=== PATIENT | male | born 1940 | race Caucasian/White ===

== ENCOUNTER 2018-08-28 06:05 | Emergency (ER) | payer MEDICAID ==
[~2018-08-28] VITALS: Ht 167.6 cm; Wt 73.0 kg
[~2018-08-28 06:05] MED LIST: ACET-2178 PO; AMLO2.5T45 PO; GABA-531 PO; PIOG30TA10 PO; TAMS0.4C31 PO
[2018-08-28] MEDS ORDERED: KETOROLAC 30MG/ML VIAL IM ONE (12:15)
[2018-08-28] MEDS ORDERED: HYDROCODONE/ACETAMINOPHEN 5/325MG TABLET PO ONE (12:15)
[2018-08-28] MEDS ORDERED: METHOCARBAMOL 500MG TABLET PO ONE (12:15)
[2018-08-28 15:12] VITALS: BP 123/45
== END 2018-08-28 15:15 | disposition home or self-care (01) ==
LOC: ER 06:05
DX: M48.061 Spinal stenosis, lumbar region without neurogenic claudication (principal); M54.42 Lumbago with sciatica, left side; J45.909 Unspecified asthma, uncomplicated; E11.9 Type 2 diabetes mellitus without complications; Z79.899 Other long term (current) drug therapy
CPT/HCPCS: 72131; 96372; 99284; J1885

== ENCOUNTER 2019-01-29 10:34 | Inpatient (IN) | payer MEDICAID ==
[2019-01-29] VITALS (28 sets, daily range): BP systolic 94–152; BP diastolic 45–80
[~2019-01-29] VITALS: Ht 165.1 cm; Wt 77.2 kg
[2019-01-29] MEDS ORDERED: SODIUM CHLORIDE 0.9% 1,000 ML IV ONE (11:28)
[2019-01-29 11:56] LABS: CHLORIDE 105 mEq/L (98-107)
[2019-01-29 11:59] LABS: BASOPHILS % 0.7 % (0.0-2.0); EOSINOPHILS % 0.6 % (0.0-5.0); HEMATOCRIT. 37.9 % (42.0-52.0); HEMOGLOBIN. 12.7 g/dL (14.0-18.0); LYMPHOCYTES % 19.2 % (20.0-50.0); MEAN CORPUSCULAR HEMOGLOBIN 30.6 pg (28.0-32.0); MEAN CORPUSCULAR VOLUME 91.1 fL (80.0-94.0); MEAN PLATELET VOLUME 10.1 fl (7.4-10.4); MONOCYTES % 8.8 % (2.0-8.0); NEUTROPHILS % 70.7 % (40.0-76.0); PLATELET 223 x1000/uL (130-400); RED BLOOD CELL COUNT 4.16 mill/uL (4.7-6.1); RED CELL DISTRIBUTION WIDTH 13.5 % (11.6-14.6)
[2019-01-29 12:03] LABS: PARTIAL THROMBOPLASTIN TIME 26.8 sec (23.4-31.0); PROTHROMBIN TIME 10.2 sec (9.6-11.0)
[2019-01-29] MEDS ORDERED: LEVETIRACETAM 500MG PREMIX 100 ML IV ONE (14:00)
[2019-01-29] MEDS ORDERED: DEXAMETHASONE 10 MG/ML VIAL IV ONE (14:00)
[2019-01-29] MEDS ORDERED: IOHEXOL-350 100 ML BOTTLE ONE (14:22)
[2019-01-29] MEDS ORDERED: LABETALOL 5MG/ML SYR 20 MG/4 ML SYRINGE IV ONE (15:15)
[2019-01-29] MEDS: DEXT 5%/LACTATED RINGERS 1,000 ML IV SCH (16:30)
[2019-01-29] MEDS ORDERED: IPRATROPIUM/ALBUTEROL 0.5-3(2.5)MG/3ML NEB HHN PRN (16:30)
[2019-01-29] MEDS ORDERED: NICARDIPINE 40MG/200ML PREMIX 200 ML IV SCH (16:30)
[2019-01-29] MEDS: NICARDIPINE 100 MG in SODIUM CHLORIDE 0.9% 60 ML IV PRN (16:31)
[2019-01-29] MEDS ORDERED: MORPHINE SULFATE 2 MG/ML CPJ (NOT FOR IM USE) IV PRN (18:00)
[2019-01-29] MEDS: DEXAMETHASONE 4MG/ML 1ML VIAL IV SCH ×2 (18:30→23:11)
[2019-01-29] MEDS ORDERED: ATOR20TA MT (19:24)
[2019-01-29] MEDS ORDERED: AMLO5TAB4 MT (19:24)
[2019-01-29] MEDS ORDERED: GABA300C MT (19:25)
[2019-01-29] MEDS ORDERED: AMA2 MT (19:26)
[2019-01-29] MEDS ORDERED: TAMS-11 MT (19:26)
[2019-01-29] MEDS ORDERED: ASPI-1393 MT (19:27)
[2019-01-29] MEDS ORDERED: PIOG45TA5 MT (19:28)
[2019-01-29] MEDS ORDERED: albuterol sulfate (19:31)
[2019-01-29] MEDS ORDERED: DIPHENHYDRAMINE 50MG/ML VIAL IV PRN (19:45)
[2019-01-29] MEDS ORDERED: ONDANSETRON HCL 4MG/2ML INJ IV PRN (19:45)
[2019-01-29] MEDS: LEVETIRACETAM 500 MG in SODIUM CHLORIDE 0.9% 100 ML IV SCH (21:53)
[2019-01-30] VITALS (93 sets, daily range): BP systolic 99–178; BP diastolic 28–79
[2019-01-30 05:21] LABS: HEMATOCRIT. 36.2 % (42.0-52.0); MEAN CORPUSCULAR HEMOGLOBIN 30.4 pg (28.0-32.0); MEAN CORPUSCULAR VOLUME 91.7 fL (80.0-94.0); MEAN PLATELET VOLUME 10.1 fl (7.4-10.4); PLATELET 231 x1000/uL (130-400); RED BLOOD CELL COUNT 3.95 mill/uL (4.7-6.1); RED CELL DISTRIBUTION WIDTH 13.8 % (11.6-14.6)
[2019-01-30] MEDS: DEXAMETHASONE 4MG/ML 1ML VIAL IV SCH ×3 (05:42→17:09)
[2019-01-30] MEDS: NICARDIPINE 100 MG in SODIUM CHLORIDE 0.9% 60 ML IV PRN (06:29)
[2019-01-30] MEDS ORDERED: NORMAL SALINE 0.9% 10 ML SYR ONE (07:24)
[2019-01-30] MEDS ORDERED: BACITRACIN 15GM TUBE TOP ONE (07:24)
[2019-01-30] MEDS ORDERED: LIDOCAINE HCL/EPINEPHRINE 1%-EPI 1:100,000 20 ML VIAL ONE (07:25)
[2019-01-30] MEDS ORDERED: THROMBIN (BOVINE) 5000 UNITS/VIAL TOP ONE (07:25)
[2019-01-30] MEDS ORDERED: BACITRACIN 50,000 UNITS/VIAL ONE (07:25)
[2019-01-30] MEDS ORDERED: LACTATED RINGERS 3,000 ML IV ONE (07:25)
[2019-01-30] MEDS ORDERED: DEXTROSE 50% WATER 50ML SYRINGE IV PRN (07:30)
[2019-01-30] MEDS ORDERED: INSULIN LISPRO 100 UNITS/ML SUBCUT SCH (07:30)
[2019-01-30] MEDS: LEVETIRACETAM 500 MG in SODIUM CHLORIDE 0.9% 100 ML IV SCH ×2 (08:39→20:20)
[2019-01-30] MEDS ORDERED: FENTANYL CITRATE/PF 50MCG/ML 2ML VIAL ONE (09:15)
[2019-01-30] MEDS ORDERED: GLYCOPYRROLATE 0.2 MG/ML 2ML VIAL ONE (09:15)
[2019-01-30] MEDS ORDERED: ROCURONIUM BROMIDE 10MG/ML VIAL 5ML IV ONE (09:15)
[2019-01-30] MEDS ORDERED: PROPOFOL 200MG/20ML VIAL IV ONE (09:15)
[2019-01-30] MEDS ORDERED: MIDAZOLAM HCL 2 MG/2 ML VIAL ONE (09:15)
[2019-01-30] MEDS ORDERED: NEOSTIGMINE METHYLSULFATE 1MG/ML 10 ML VIAL ONE (09:15)
[2019-01-30] MEDS ORDERED: DEXAMETHASONE 4MG/ML 1ML VIAL ONE (09:35)
[2019-01-30] MEDS ORDERED: ONDANSETRON HCL 4MG/2ML INJ ONE (09:35)
[2019-01-30] MEDS ORDERED: CEFAZOLIN SODIUM 1000MG/VIAL ONE (09:36)
[2019-01-30] MEDS ORDERED: SODIUM CHLORIDE 0.9% 10ML VIAL ONE (09:36)
[2019-01-30] MEDS ORDERED: PHENYTOIN SODIUM 250MG/5ML VIAL IV SCH (09:45)
[2019-01-30 09:59] LABS: PLATELET ESTIMATE NORMAL
[2019-01-30] MEDS ORDERED: LABETALOL 5MG/ML SYR 20 MG/4 ML SYRINGE IV PRN (10:00)
[2019-01-30] MEDS ORDERED: HYDROMORPHONE HCL/PF 2MG/ML CPJ IV PRN (10:00)
[2019-01-30] MEDS ORDERED: MEPERIDINE HCL/PF 25MG/ML CPJ IV PRN (10:00)
[2019-01-30] MEDS ORDERED: ONDANSETRON HCL 4MG/2ML INJ IV PRN (10:00)
[2019-01-30] MEDS ORDERED: MORPHINE SULFATE 2 MG/ML CPJ (NOT FOR IM USE) IV PRN (10:00)
[2019-01-30] MEDS: MORPHINE SULFATE 4 MG/ML CPJ (NOT FOR IM USE) IV PRN (10:50)
[2019-01-30] MEDS: DEXT 5%/LACTATED RINGERS 1,000 ML IV SCH (11:04)
[2019-01-30] MEDS: PHENYTOIN SODIUM 100MG/2ML VIAL IV SCH ×2 (11:33→17:10)
[2019-01-30] MEDS: BLOOD SUGAR DIAGNOSTIC STRIP TEST SCH ×2 (11:50→17:05)
[2019-01-30 11:55] LABS: BG BASE EXCESS -8.8 mmol/L (-2.0-2.0); BG CARBOXYHEMOGLOBIN 0.1 % (0.5-1.5); BG DEOXYHEMOGLOBIN 0.5 % (0.0-5.0); BG FRACTION INSPIRED OXYGEN 100; BG HCO3 ACT 16.2 mmol/L (22.0-26.0); BG METHEMOGLOBIN 0.4 % (0.0-1.5); BG OXYGEN SATURATION 99.5 % (92.0-98.5); BG PCO2 32.6 mmHg (35.0-45.0); BG PH 7.315 (7.350-7.450); BG PO2 405.6 mmHg (75.0-100.0); BG SAMPLE SITE RIGHT RADIAL; BG TIDAL VOLUME(mL) 500 mL; BG TOTAL HEMOGLOBIN 13.2 g/dL (12.0-18.0); BG VENT MODE VENT - A/C; BG VENT RATE 12 set
[2019-01-30] MEDS: INSULIN LISPRO 100 UNITS/ML SUBCUT SCH ×2 (11:55→17:10)
[2019-01-30] MEDS ORDERED: CEFAZOLIN SODIUM 1000MG/VIAL IV SCH (14:00)
[2019-01-30] MEDS: PANTOPRAZOLE SODIUM 40 MG/VIAL IV SCH (14:13)
[2019-01-30] MEDS: CEFAZOLIN 1000MG PREMIX 50 ML IV SCH ×2 (14:13→22:08)
[2019-01-30] MEDS: INSULIN GLARGINE UD 100 UNITS/ML SYR SUBCUT SCH (22:10)
[2019-01-31] VITALS (90 sets, daily range): BP systolic 99–144; BP diastolic 45–108
[2019-01-31] MEDS: DEXAMETHASONE 4MG/ML 1ML VIAL IV SCH ×5 (00:42→23:07)
[2019-01-31] MEDS: INSULIN LISPRO 100 UNITS/ML SUBCUT SCH ×5 (00:43→23:07)
[2019-01-31] MEDS: PHENYTOIN SODIUM 100MG/2ML VIAL IV SCH ×3 (02:39→17:55)
[2019-01-31] MEDS: MORPHINE SULFATE 4 MG/ML CPJ (NOT FOR IM USE) IV PRN ×2 (02:40→18:55)
[2019-01-31] MEDS: CEFAZOLIN 1000MG PREMIX 50 ML IV SCH ×3 (05:03→21:30)
[2019-01-31] MEDS: BLOOD SUGAR DIAGNOSTIC STRIP TEST SCH ×5 (05:05→23:08)
[2019-01-31 05:12] LABS: HEMATOCRIT. 38.6 % (42.0-52.0); HEMOGLOBIN. 12.7 g/dL (14.0-18.0); MEAN CORPUSCULAR HEMOGLOBIN 30.1 pg (28.0-32.0); MEAN CORPUSCULAR VOLUME 91.6 fL (80.0-94.0); MEAN PLATELET VOLUME 9.8 fl (7.4-10.4); PLATELET 218 x1000/uL (130-400); RED BLOOD CELL COUNT 4.22 mill/uL (4.7-6.1); RED CELL DISTRIBUTION WIDTH 14.1 % (11.6-14.6)
[2019-01-31 05:20] LABS: CHLORIDE 108 mEq/L (98-107)
[2019-01-31 05:29] LABS: LDL CHOLESTEROL 53 mg/dL (5-100)
[2019-01-31 05:31] LABS: HDL CHOLESTEROL 58 mg/dL (40-59)
[2019-01-31] MEDS: PANTOPRAZOLE SODIUM 40 MG/VIAL IV SCH (08:37)
[2019-01-31] MEDS: LEVETIRACETAM 500 MG in SODIUM CHLORIDE 0.9% 100 ML IV SCH ×2 (08:37→21:30)
[2019-01-31] MEDS: DEXT 5%/LACTATED RINGERS 1,000 ML IV SCH (08:38)
[2019-01-31] MEDS: INSULIN GLARGINE UD 100 UNITS/ML SYR SUBCUT SCH (09:15)
[2019-01-31 09:54] LABS: PLATELET ESTIMATE NORMAL
[2019-01-31] MEDS ORDERED: DOCUSATE SODIUM 250MG CAPSULE PO PRN (11:00)
[2019-01-31] MEDS: AMLODIPINE 2.5MG TABLET PO SCH (16:53)
[2019-01-31] MEDS: IPRATROPIUM/ALBUTEROL 0.5-3(2.5)MG/3ML NEB INH PRN (20:17)
[2019-01-31] MEDS: ATORVASTATIN CALCIUM 20MG TABLET PO SCH (21:30)
[2019-01-31] MEDS ORDERED: INSULIN GLARGINE UD 100 UNITS/ML SYR SUBCUT SCH (22:00)
[2019-02-01] VITALS (89 sets, daily range): BP systolic 96–155; BP diastolic 43–81
[2019-02-01] MEDS: PHENYTOIN SODIUM EXTENDED 100MG CAPSULE PO SCH ×4 (02:03→21:14)
[2019-02-01] MEDS: AMLODIPINE 2.5MG TABLET PO SCH (03:14)
[2019-02-01 05:01] LABS: HEMATOCRIT. 36.2 % (42.0-52.0); MEAN CORPUSCULAR HEMOGLOBIN 30.2 pg (28.0-32.0); MEAN CORPUSCULAR VOLUME 91.5 fL (80.0-94.0); MEAN PLATELET VOLUME 10.3 fl (7.4-10.4); PLATELET 209 x1000/uL (130-400); RED BLOOD CELL COUNT 3.96 mill/uL (4.7-6.1)
[2019-02-01 05:13] LABS: CHLORIDE 107 mEq/L (98-107)
[2019-02-01] MEDS: BLOOD SUGAR DIAGNOSTIC STRIP TEST SCH ×4 (05:39→23:15)
[2019-02-01] MEDS: DEXAMETHASONE 4MG/ML 1ML VIAL IV SCH ×4 (05:39→23:14)
[2019-02-01] MEDS: GLIMEPIRIDE 2MG TABLET PO SCH (05:39)
[2019-02-01] MEDS: DEXT 5%/LACTATED RINGERS 1,000 ML IV SCH (05:40)
[2019-02-01] MEDS: INSULIN LISPRO 100 UNITS/ML SUBCUT SCH ×4 (05:41→23:14)
[2019-02-01] MEDS: CEFAZOLIN 1000MG PREMIX 50 ML IV SCH ×2 (05:42→13:52)
[2019-02-01 05:57] LABS: CREATINE KINASE 61 IU/L (39-308)
[2019-02-01 06:01] LABS: CREATINE KINASE MB FRACTION < 1.0 ng/mL (0.5-3.6)
[2019-02-01 07:27] LABS: PLATELET ESTIMATE NORMAL
[2019-02-01] MEDS: PIOGLITAZONE 45MG TABLET PO SCH (08:57)
[2019-02-01] MEDS: LEVETIRACETAM 500 MG in SODIUM CHLORIDE 0.9% 100 ML IV SCH ×2 (08:57→21:14)
[2019-02-01] MEDS: PANTOPRAZOLE SODIUM 40 MG/VIAL IV SCH (08:57)
[2019-02-01] MEDS: IPRATROPIUM/ALBUTEROL 0.5-3(2.5)MG/3ML NEB INH PRN ×2 (09:20→20:19)
[2019-02-01] MEDS: NICARDIPINE 100 MG in SODIUM CHLORIDE 0.9% 60 ML IV PRN ×2 (10:11→19:23)
[2019-02-01] MEDS: BENZONATATE 100MG CAPSULE PO PRN (10:45)
[2019-02-01] MEDS: MORPHINE SULFATE 4 MG/ML CPJ (NOT FOR IM USE) IV PRN (12:25)
[2019-02-01] MEDS: LOSARTAN POTASSIUM 25 MG TABLET PO SCH ×2 (13:52→21:14)
[2019-02-01] MEDS: AMLODIPINE 5MG TABLET PO SCH (21:14)
[2019-02-01] MEDS: ATORVASTATIN CALCIUM 20MG TABLET PO SCH (21:14)
[2019-02-01] MEDS: INSULIN GLARGINE UD 100 UNITS/ML SYR SUBCUT SCH (21:16)
[2019-02-02] VITALS (94 sets, daily range): BP systolic 101–157; BP diastolic 38–107
[2019-02-02] MEDS: DEXT 5%/LACTATED RINGERS 1,000 ML IV SCH ×2 (04:30→21:02)
[2019-02-02] MEDS: MORPHINE SULFATE 4 MG/ML CPJ (NOT FOR IM USE) IV PRN (04:37)
[2019-02-02 05:05] LABS: HEMATOCRIT. 37.3 % (42.0-52.0); HEMOGLOBIN. 12.4 g/dL (14.0-18.0); MEAN CORPUSCULAR HEMOGLOBIN 30.1 pg (28.0-32.0); MEAN CORPUSCULAR VOLUME 90.6 fL (80.0-94.0); MEAN PLATELET VOLUME 10.1 fl (7.4-10.4); PLATELET 213 x1000/uL (130-400); RED BLOOD CELL COUNT 4.11 mill/uL (4.7-6.1)
[2019-02-02 05:19] LABS: CHLORIDE 105 mEq/L (98-107)
[2019-02-02] MEDS: GLIMEPIRIDE 2MG TABLET PO SCH (05:36)
[2019-02-02] MEDS: DEXAMETHASONE 4MG/ML 1ML VIAL IV SCH ×4 (05:36→23:40)
[2019-02-02] MEDS: PHENYTOIN SODIUM EXTENDED 100MG CAPSULE PO SCH ×3 (05:36→22:18)
[2019-02-02] MEDS: INSULIN LISPRO 100 UNITS/ML SUBCUT SCH ×4 (05:39→23:48)
[2019-02-02] MEDS: BLOOD SUGAR DIAGNOSTIC STRIP TEST SCH ×4 (05:39→23:44)
[2019-02-02] MEDS: FAMOTIDINE 20MG TABLET PO SCH (08:01)
[2019-02-02] MEDS: PIOGLITAZONE 45MG TABLET PO SCH (08:01)
[2019-02-02] MEDS: AMLODIPINE 5MG TABLET PO SCH ×2 (08:01→21:05)
[2019-02-02] MEDS: LOSARTAN POTASSIUM 25 MG TABLET PO SCH ×2 (08:01→21:03)
[2019-02-02] MEDS: LEVETIRACETAM 500 MG in SODIUM CHLORIDE 0.9% 100 ML IV SCH ×2 (08:02→21:03)
[2019-02-02 11:54] LABS: PLATELET ESTIMATE NORMAL
[2019-02-02] MEDS: BENZONATATE 100MG CAPSULE PO PRN (13:00)
[2019-02-02] MEDS: IPRATROPIUM/ALBUTEROL 0.5-3(2.5)MG/3ML NEB INH PRN (13:46)
[2019-02-02] MEDS: ATORVASTATIN CALCIUM 20MG TABLET PO SCH (21:03)
[2019-02-02] MEDS: INSULIN GLARGINE UD 100 UNITS/ML SYR SUBCUT SCH (22:18)
[2019-02-03] VITALS (78 sets, daily range): BP systolic 113–146; BP diastolic 37–91
[2019-02-03] MEDS: DEXAMETHASONE 4MG/ML 1ML VIAL IV SCH ×4 (06:25→23:41)
[2019-02-03] MEDS: BLOOD SUGAR DIAGNOSTIC STRIP TEST SCH ×4 (06:25→23:36)
[2019-02-03] MEDS: GLIMEPIRIDE 2MG TABLET PO SCH (06:26)
[2019-02-03] MEDS: PHENYTOIN SODIUM EXTENDED 100MG CAPSULE PO SCH ×3 (06:26→21:25)
[2019-02-03] MEDS: INSULIN LISPRO 100 UNITS/ML SUBCUT SCH ×4 (06:43→23:41)
[2019-02-03] MEDS: PIOGLITAZONE 45MG TABLET PO SCH (08:02)
[2019-02-03] MEDS: FAMOTIDINE 20MG TABLET PO SCH (08:02)
[2019-02-03] MEDS: AMLODIPINE 5MG TABLET PO SCH ×2 (08:03→21:25)
[2019-02-03] MEDS: LEVETIRACETAM 500 MG in SODIUM CHLORIDE 0.9% 100 ML IV SCH ×2 (08:03→21:25)
[2019-02-03] MEDS: LOSARTAN POTASSIUM 25 MG TABLET PO SCH ×2 (08:03→21:25)
[2019-02-03] MEDS: BENZONATATE 100MG CAPSULE PO PRN (10:18)
[2019-02-03] MEDS: IPRATROPIUM/ALBUTEROL 0.5-3(2.5)MG/3ML NEB INH PRN (10:21)
[2019-02-03] MEDS: PROMETHAZINE/DEXTROMETHORPHAN 6.25-15MG/5ML BOTTLE 120ML PO PRN ×2 (11:04→17:10)
[2019-02-03] MEDS: IPRATROPIUM/ALBUTEROL 0.5-3(2.5)MG/3ML NEB HHN SCH ×2 (14:18→20:31)
[2019-02-03] MEDS: BUDESONIDE 0.5MG/2ML NEB HHN SCH ×2 (14:18→20:31)
[2019-02-03] MEDS: BENZONATATE 100MG CAPSULE PO SCH (17:10)
[2019-02-03] MEDS: ATORVASTATIN CALCIUM 20MG TABLET PO SCH (21:25)
[2019-02-03] MEDS: INSULIN GLARGINE UD 100 UNITS/ML SYR SUBCUT SCH (21:26)
[2019-02-04] VITALS (12 sets, daily range): BP systolic 113–147; BP diastolic 48–73
[2019-02-04] MEDS: IPRATROPIUM/ALBUTEROL 0.5-3(2.5)MG/3ML NEB HHN SCH (00:58)
[2019-02-04] MEDS: BENZONATATE 100MG CAPSULE PO SCH ×3 (05:39→21:18)
[2019-02-04] MEDS: PHENYTOIN SODIUM EXTENDED 100MG CAPSULE PO SCH ×3 (05:39→21:07)
[2019-02-04] MEDS: DEXAMETHASONE 4MG/ML 1ML VIAL IV SCH ×4 (05:39→23:26)
[2019-02-04] MEDS: BLOOD SUGAR DIAGNOSTIC STRIP TEST SCH ×4 (05:47→21:06)
[2019-02-04] MEDS: INSULIN LISPRO 100 UNITS/ML SUBCUT SCH ×4 (05:54→21:31)
[2019-02-04] MEDS: GLIMEPIRIDE 2MG TABLET PO SCH (06:44)
[2019-02-04 07:52] LABS: HEMOGLOBIN. 11.5 g/dL (14.0-18.0); MEAN CORPUSCULAR HEMOGLOBIN 29.9 pg (28.0-32.0); MEAN CORPUSCULAR VOLUME 90.6 fL (80.0-94.0); MEAN PLATELET VOLUME 9.8 fl (7.4-10.4); PLATELET 183 x1000/uL (130-400); RED BLOOD CELL COUNT 3.87 mill/uL (4.7-6.1); RED CELL DISTRIBUTION WIDTH 13.6 % (11.6-14.6)
[2019-02-04 07:53] LABS: CHLORIDE 106 mEq/L (98-107)
[2019-02-04 08:56] LABS: PLATELET ESTIMATE NORMAL
[2019-02-04] MEDS: AMLODIPINE 5MG TABLET PO SCH ×2 (09:14→21:07)
[2019-02-04] MEDS: LOSARTAN POTASSIUM 25 MG TABLET PO SCH ×2 (09:14→21:07)
[2019-02-04] MEDS: FAMOTIDINE 20MG TABLET PO SCH (09:14)
[2019-02-04] MEDS: LEVETIRACETAM 500 MG in SODIUM CHLORIDE 0.9% 100 ML IV SCH ×2 (09:15→21:46)
[2019-02-04] MEDS: PROMETHAZINE/DEXTROMETHORPHAN 6.25-15MG/5ML BOTTLE 120ML PO PRN (09:15)
[2019-02-04] MEDS: PIOGLITAZONE 45MG TABLET PO SCH (13:01)
[2019-02-04] MEDS: ATORVASTATIN CALCIUM 20MG TABLET PO SCH (21:06)
[2019-02-04] MEDS: INSULIN GLARGINE UD 100 UNITS/ML SYR SUBCUT SCH (21:49)
[2019-02-05 04:00] VITALS: BP 128/55
[2019-02-05 05:44] LABS: HEMATOCRIT. 35.9 % (42.0-52.0); HEMOGLOBIN. 11.9 g/dL (14.0-18.0); MEAN CORPUSCULAR HEMOGLOBIN 30.1 pg (28.0-32.0); MEAN CORPUSCULAR VOLUME 90.7 fL (80.0-94.0); MEAN PLATELET VOLUME 10.1 fl (7.4-10.4); PLATELET 196 x1000/uL (130-400); RED BLOOD CELL COUNT 3.95 mill/uL (4.7-6.1); RED CELL DISTRIBUTION WIDTH 13.6 % (11.6-14.6)
[2019-02-05 05:48] LABS: CHLORIDE 108 mEq/L (98-107)
[2019-02-05] MEDS: INSULIN LISPRO 100 UNITS/ML SUBCUT SCH ×3 (06:00→18:06)
[2019-02-05] MEDS: DEXAMETHASONE 4MG/ML 1ML VIAL IV SCH ×2 (06:13→11:28)
[2019-02-05] MEDS: PHENYTOIN SODIUM EXTENDED 100MG CAPSULE PO SCH ×2 (06:13→14:41)
[2019-02-05] MEDS: BENZONATATE 100MG CAPSULE PO SCH ×2 (06:13→14:41)
[2019-02-05] MEDS: BLOOD SUGAR DIAGNOSTIC STRIP TEST SCH ×3 (06:13→18:06)
[2019-02-05] MEDS: GLIMEPIRIDE 2MG TABLET PO SCH (07:10)
[2019-02-05 08:00] VITALS: BP 126/51
[2019-02-05] MEDS: AMLODIPINE 5MG TABLET PO SCH ×2 (08:29→08:31)
[2019-02-05] MEDS: LOSARTAN POTASSIUM 25 MG TABLET PO SCH ×2 (08:32→20:21)
[2019-02-05] MEDS: FAMOTIDINE 20MG TABLET PO SCH (08:32)
[2019-02-05] MEDS: PIOGLITAZONE 45MG TABLET PO SCH (08:32)
[2019-02-05] MEDS: LEVETIRACETAM 500 MG in SODIUM CHLORIDE 0.9% 100 ML IV SCH (08:39)
[2019-02-05 11:03] LABS: PLATELET ESTIMATE NORMAL
[2019-02-05 12:00] VITALS: BP 120/50
[2019-02-05 16:00] VITALS: BP 102/62
[2019-02-05 18:34] VITALS: BP 102/52
[2019-02-05 20:00] VITALS: BP 115/57
[2019-02-05] MEDS: ATORVASTATIN CALCIUM 20MG TABLET PO SCH (20:20)
[2019-02-05] MEDS ORDERED: DEXAMETHASONE 4MG/ML 1ML VIAL IV SCH (21:00)
[2019-02-05] MEDS ORDERED: AMLODIPINE 2.5MG TABLET PO SCH (21:00)
[2019-02-05] MEDS ORDERED: LEVETIRACETAM 500MG TABLET PO SCH (21:00)
[2019-02-05] MEDS ORDERED: INSULIN GLARGINE UD 100 UNITS/ML SYR SUBCUT SCH (22:00)
== END 2019-02-05 21:07 | disposition home or self-care (01) | DRG 21 ==
LOC: ER 10:34 → MICUSO 14:27 → EDBEDREQ 14:33 → ENRESERV 15:18 → 8WST 02-04 03:19
PROVIDERS: ADMIT Internal Medicine; ATTEND Internal Medicine
PROC: 00940ZZ Drainage of Intracranial Subdural Space, Open Approach (ICD-10-PCS; principal; 2019-01-30)
PROC: 00U207Z Supplement Dura Mater with Autologous Tissue Substitute, Open Approach (ICD-10-PCS; 2019-01-30)
DX: I62.01 Nontraumatic acute subdural hemorrhage (principal); G93.49 Other encephalopathy; E11.649 Type 2 diabetes mellitus with hypoglycemia without coma; G81.94 Hemiplegia, unspecified affecting left nondominant side; I10 Essential (primary) hypertension; E78.00 Pure hypercholesterolemia, unspecified; E78.5 Hyperlipidemia, unspecified; J45.909 Unspecified asthma, uncomplicated; M81.0 Age-related osteoporosis without current pathological fracture; Z79.4 Long term (current) use of insulin; Z79.82 Long term (current) use of aspirin; Z79.899 Other long term (current) drug therapy; N40.0 Benign prostatic hyperplasia without lower urinary tract symptoms; J98.11 Atelectasis; T38.0X5A Adverse effect of glucocorticoids and synthetic analogues, initial encounter; Y92.89 Other specified places as the place of occurrence of the external cause
CPT/HCPCS: 36415; 36600; 70551; 71045; 71275; 74174; 80048; 80061; 82375; 82550; 82553; 82805; 82962; 83036; 83735; 83880; 84443; 84484; 86850; 86900; 88304; 88305; 93005; 93306; 93970; 94002; 94640; 96374; 96375; 97162; 99291; C1713; C1758; C9113; J0690; J1100; J1165; J1170; J1815; J1953; J2250; J2270; J2405; J2704; J2710; J3010; J3490; J7030; J7050; J7120; J7121; J7620; J7626; Q9967

== ENCOUNTER 2019-02-07 10:22 | Emergency (ER) | payer MEDICAID ==
[~2019-02-07] VITALS: Ht 162.6 cm; Wt 80.3 kg
[~2019-02-07 10:22] MED LIST changes: +AMA2 MT; +AMLO5TAB4 MT; +ASPI-1393 MT; +ATOR20TA MT; +GABA300C MT; +PIOG45TA5 MT; +TAMS-11 MT; +albuterol sulfate
[2019-02-07 12:45] VITALS: BP 156/73
== END 2019-02-07 12:46 | disposition home or self-care (01) ==
LOC: ER 10:22
DX: R22.0 Localized swelling, mass and lump, head (principal); E11.9 Type 2 diabetes mellitus without complications; I10 Essential (primary) hypertension; E78.00 Pure hypercholesterolemia, unspecified; J45.909 Unspecified asthma, uncomplicated; Z98.890 Other specified postprocedural states; Z79.82 Long term (current) use of aspirin
CPT/HCPCS: 99283

== ENCOUNTER 2022-01-10 11:27 | Inpatient (IN) | payer MEDICAID, OTHER ==
[~2022-01-10] VITALS: Ht 160 cm; Wt 78.0 kg
[~2022-01-10 11:27] MED LIST changes: -ACET-2178 PO; -ASPI-1393 MT; +ASPI-1497 MT; -GABA-531 PO; +GABA-532 PO; +TOPUD PO
[2022-01-10 16:20] LABS: EOSINOPHILS % 0.9 % (0.0-5.0); HEMATOCRIT. 35.2 % (42.0-52.0); HEMOGLOBIN. 11.7 g/dL (14.0-18.0); LYMPHOCYTES % 24.9 % (20.0-50.0); MEAN CORPUSCULAR VOLUME 93.5 fL (80.0-94.0); MEAN PLATELET VOLUME 9.4 fl (7.4-10.4); MONOCYTES % 9.6 % (2.0-8.0); NEUTROPHILS % 63.6 % (40.0-76.0); PLATELET 227 x1000/uL (130-400); RED BLOOD CELL COUNT 3.77 mill/uL (4.7-6.1); RED CELL DISTRIBUTION WIDTH 14.2 % (11.6-14.6)
[2022-01-10 16:56] LABS: CHLORIDE 107 mEq/L (98-107)
[2022-01-10 17:01] LABS: PARTIAL THROMBOPLASTIN TIME 26.6 sec (23.4-31.0); PROTHROMBIN TIME 10.5 sec (9.6-11.0)
[2022-01-10] MEDS ORDERED: ENOXAPARIN 80MG/0.8ML SYR SUBCUT ONE (17:15)
[2022-01-10] MEDS ORDERED: TRAMADOL 50MG TABLET PO ONE (18:30)
[2022-01-11 01:25] VITALS: BP 160/55
[2022-01-11] MEDS ORDERED: TAMS-11 PO (02:20)
[2022-01-11] MEDS ORDERED: ASPI-1497 PO (02:20)
[2022-01-11] MEDS ORDERED: TOPUD PO (02:20)
[2022-01-11] MEDS ORDERED: GABA-532 PO (02:20)
[2022-01-11] MEDS ORDERED: ATOR20TA PO (02:20)
[2022-01-11] MEDS ORDERED: AMLO10TA4 MT (02:20)
[2022-01-11] MEDS ORDERED: ACETAMINOPHEN 650MG/20.3ML UDC PO PRN (02:30)
[2022-01-11] MEDS ORDERED: DEXTROSE 50% WATER 50ML SYRINGE IV PRN (02:30)
[2022-01-11 04:00] VITALS: BP 127/55
[2022-01-11] MEDS: BLOOD SUGAR DIAGNOSTIC STRIP TEST SCH ×4 (05:04→19:58)
[2022-01-11] MEDS: INSULIN LISPRO 100 UNITS/ML SUBCUT SCH ×4 (05:44→21:18)
[2022-01-11 06:13] LABS: HEMATOCRIT. 33.2 % (42.0-52.0); HEMOGLOBIN. 11.2 g/dL (14.0-18.0); MEAN PLATELET VOLUME 9.2 fl (7.4-10.4); PLATELET 217 x1000/uL (130-400); RED BLOOD CELL COUNT 3.61 mill/uL (4.7-6.1); RED CELL DISTRIBUTION WIDTH 13.9 % (11.6-14.6)
[2022-01-11 08:00] VITALS: BP 125/51
[2022-01-11] MEDS: TAMSULOSIN HCL 0.4MG SR CAPSULE PO SCH (09:00)
[2022-01-11] MEDS: AMLODIPINE 10MG TABLET PO SCH (09:16)
[2022-01-11] MEDS: GABAPENTIN 300MG CAPSULE PO SCH ×2 (09:17→17:17)
[2022-01-11] MEDS: ASPIRIN 81MG TABLET PO SCH (09:18)
[2022-01-11 12:06] VITALS: BP 134/51
[2022-01-11 16:00] VITALS: BP 116/54
[2022-01-11] MEDS ORDERED: EMPA10TA PO (18:33)
[2022-01-11] MEDS ORDERED: LOSA50TA41 PO (18:37)
[2022-01-11] MEDS ORDERED: SITA50TA3 PO (18:37)
[2022-01-11] MEDS ORDERED: HYDR12.54 PO (18:37)
[2022-01-11] MEDS ORDERED: METO25TA6 PO (18:37)
[2022-01-11 20:00] VITALS: BP 126/54
[2022-01-11] MEDS ORDERED: ATORVASTATIN CALCIUM 20MG TABLET PO SCH (21:00)
[2022-01-11] MEDS: DOCUSATE SODIUM 100MG CAPSULE PO SCH (21:15)
[2022-01-11 21:32] LABS: PLATELET ESTIMATE NORMAL
[2022-01-11] MEDS ORDERED: SODIUM CHLORIDE 0.9% 1,000 ML IV SCH (22:15)
[2022-01-12] VITALS: BP 119/54
[2022-01-12 03:31] VITALS: BP 112/56
[2022-01-12] MEDS: INSULIN LISPRO 100 UNITS/ML SUBCUT SCH ×3 (05:43→17:27)
[2022-01-12] MEDS: BLOOD SUGAR DIAGNOSTIC STRIP TEST SCH ×3 (05:43→17:27)
[2022-01-12 08:00] VITALS: BP 141/52
[2022-01-12] MEDS: GABAPENTIN 300MG CAPSULE PO SCH ×2 (08:53→17:27)
[2022-01-12] MEDS: ASPIRIN 81MG TABLET PO SCH (08:53)
[2022-01-12] MEDS: AMLODIPINE 10MG TABLET PO SCH (08:53)
[2022-01-12] MEDS: TAMSULOSIN HCL 0.4MG SR CAPSULE PO SCH (08:53)
[2022-01-12] MEDS: DOCUSATE SODIUM 100MG CAPSULE PO SCH ×2 (08:54→17:27)
[2022-01-12 11:50] LABS: BASOPHILS % 1.3 % (0.0-2.0); EOSINOPHILS % 1.4 % (0.0-5.0); HEMATOCRIT. 34.8 % (42.0-52.0); HEMOGLOBIN. 11.7 g/dL (14.0-18.0); LYMPHOCYTES % 22.9 % (20.0-50.0); MEAN CORPUSCULAR HEMOGLOBIN 30.9 pg (28.0-32.0); MEAN CORPUSCULAR VOLUME 91.6 fL (80.0-94.0); MEAN PLATELET VOLUME 9.7 fl (7.4-10.4); MONOCYTES % 11.1 % (2.0-8.0); NEUTROPHILS % 63.3 % (40.0-76.0); PLATELET 219 x1000/uL (130-400); RED CELL DISTRIBUTION WIDTH 13.8 % (11.6-14.6)
[2022-01-12 12:00] VITALS: BP 113/49
[2022-01-12 16:00] VITALS: BP 110/52
[2022-01-12 17:34] VITALS: BP 110/52
== END 2022-01-12 18:05 | disposition home or self-care (01) | DRG 420 ==
LOC: ER 11:27 → 8WST 17:46 → EDBEDREQ 17:52 → EDBEDREQSVC 17:52 → EDBEDREQTM 17:52 → ENRESERV 22:40 → 6WST 01-11 00:21 → 8WST 01-11 00:22
PROVIDERS: ADMIT Internal Medicine; ATTEND Internal Medicine
DX: E11.65 Type 2 diabetes mellitus with hyperglycemia (principal); N17.9 Acute kidney failure, unspecified; M79.661 Pain in right lower leg; M79.662 Pain in left lower leg; E78.00 Pure hypercholesterolemia, unspecified; I10 Essential (primary) hypertension; N40.0 Benign prostatic hyperplasia without lower urinary tract symptoms; J45.909 Unspecified asthma, uncomplicated; E78.5 Hyperlipidemia, unspecified; I25.10 Atherosclerotic heart disease of native coronary artery without angina pectoris; M81.0 Age-related osteoporosis without current pathological fracture; Z20.822 Contact with and (suspected) exposure to COVID-19; Z79.899 Other long term (current) drug therapy; Z79.82 Long term (current) use of aspirin; Z87.891 Personal history of nicotine dependence; Z82.49 Family history of ischemic heart disease and other diseases of the circulatory system
CPT/HCPCS: 36415; 73562; 76770; 80048; 80053; 80061; 82962; 83036; 85025; 87426; 93005; 93306; 93923; 93970; 99291; J1650; J1815; J7030

== ENCOUNTER 2022-03-16 13:09 | Emergency (ER) | payer OTHER ==
[~2022-03-16] VITALS: Ht 160 cm; Wt 72.0 kg
[~2022-03-16 13:09] MED LIST changes: +AMLO10TA4 MT; -AMLO5TAB4 MT; +EMPA10TA PO; -GABA300C MT; +LOSA50TA41 PO; +METO25TA6 PO; -PIOG45TA5 MT; -TAMS-11 MT; -TOPUD PO; -albuterol sulfate
[2022-03-16 17:33] LABS: BASOPHILS % 0.5 % (0.0-2.0); EOSINOPHILS % 2.9 % (0.0-5.0); HEMATOCRIT. 33.7 % (42.0-52.0); HEMOGLOBIN. 11.4 g/dL (14.0-18.0); LYMPHOCYTES % 15.1 % (20.0-50.0); MEAN CORPUSCULAR HEMOGLOBIN 31.7 pg (28.0-32.0); MEAN CORPUSCULAR VOLUME 93.9 fL (80.0-94.0); MEAN PLATELET VOLUME 9.5 fl (7.4-10.4); MONOCYTES % 11.9 % (2.0-8.0); NEUTROPHILS % 69.6 % (40.0-76.0); PLATELET 183 x1000/uL (130-400); RED BLOOD CELL COUNT 3.59 mill/uL (4.7-6.1); RED CELL DISTRIBUTION WIDTH 14.2 % (11.6-14.6)
[2022-03-16 17:39] LABS: PROTHROMBIN TIME 10.7 sec (9.6-11.0)
[2022-03-16 18:27] LABS: CHLORIDE 103 mEq/L (98-107)
[2022-03-16] MEDS ORDERED: METHYLPREDNISOLONE SOD SUCC 125 MG/2 ML VIAL IV ONE (19:30)
[2022-03-16] MEDS ORDERED: IPRATROPIUM/ALBUTEROL 0.5-3(2.5)MG/3ML NEB HHN ONE (19:30)
[2022-03-16 19:46] VITALS: BP 144/56
[2022-03-16] MEDS ORDERED: CEPH500T MT (20:59)
[2022-03-16] MEDS ORDERED: MUPI15CR11 TP (20:59)
[2022-03-16] MEDS ORDERED: P50 MT (20:59)
== END 2022-03-16 22:05 | disposition home or self-care (01) ==
LOC: ER 13:09
DX: J06.9 Acute upper respiratory infection, unspecified (principal); I10 Essential (primary) hypertension; E78.00 Pure hypercholesterolemia, unspecified; E11.9 Type 2 diabetes mellitus without complications; Z20.822 Contact with and (suspected) exposure to COVID-19; Z79.899 Other long term (current) drug therapy; Z79.82 Long term (current) use of aspirin; Z98.890 Other specified postprocedural states
CPT/HCPCS: 36415; 71045; 80053; 83690; 83880; 84484; 85025; 85610; 87426; 93005; 94640; 99285; C9803; J2930; Z7610; 94664